=== PATIENT | female | born 1970 ===

== ENCOUNTER 2017-02-08 07:33 | Emergency (ER) | payer MEDICAID, OTHER, SELFPAY ==
[2017-02-08 07:59] VITALS: TEMP 98.9; BMI 25.6
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
[2017-02-08 09:44] VITALS: RESP 16
[2017-02-08 10:37] VITALS: BP 145/92; PULSE 89; O2SAT 100
== END 2017-02-08 10:25 | disposition home or self-care (01) ==
LOC: ED 07:33
DX: M25.512 Pain in left shoulder (principal)
CPT/HCPCS: 71020; 73030; 96372; 99285; J1885

== ENCOUNTER 2017-09-26 13:37 | Emergency (ER) | payer OTHER ==
[2017-09-26 15:13] VITALS: BMI 24.7
[2017-09-26 15:16] VITALS: TEMP 98.1
[2017-09-26] MEDS ORDERED: Oxycodone/Acetaminophen 5/325 mg Tab PO STA (15:36)
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
[2017-09-26 18:11] VITALS: BP 137/100; PULSE 75; RESP 16; O2SAT 98
== END 2017-09-26 18:16 | disposition home or self-care (01) ==
LOC: ED 13:37
DX: M54.2 Cervicalgia (principal)
CPT/HCPCS: 96372; 99283; J1885